=== PATIENT | female | born 1965 | race Caucasian/White ===

== ENCOUNTER 2021-08-10 12:40 | Outpatient (CLI) | payer BC, SELFPAY ==
--- NOTE | 2021-08-10 | ECHO_ITS ---
Patient Info Name: Roxy Cunningham Age: 55 years : 1965 Gender: Female Ht: 65 in Wt: 138 lbs BSA: 1.70 m2 HR: 60 bpm BP: 139 / 77 mmHg Technical Quality: Good Exam Date: 08/10/2021 1:21 PM Exam Location: [facility] Patient Status: Outpatient Admit Date: 08/10/2021 Staff Ordering Physician: IanDion MD Mailroom Supervisor: Alisa Harris RDCS Attending Provider: PabloDion MD Exam Type: CA echo doppler color flow Study Info Indications - chest pain Complete two-dimensional, color flow and Doppler transthoracic echocardiogram is performed. Summary 1. Complete two-dimensional, color flow and Doppler transthoracic echocardiogram is performed. 2. Left ventricular chamber dimension is normal. 3. Left ventricular systolic function is normal, estimated at 60-65%. 4. The left ventricular diastolic function is normal. 5. E/e' 9 is minimally elevated. 6. There is mild to moderate mitral valve regurgitation. 7. There is trace tricuspid valve regurgitation. 8. No pulmonary hypertension, estimated pulmonary arterial systolic pressure is 21 mmHg. Left Ventricle E/e' 9 is minimally elevated. Left ventricular chamber dimension is normal. Left ventricular systolic function is normal, estimated at 60-65%. The left ventricular diastolic function is normal. Right Ventricle Right ventricular chamber dimension is normal. Right ventricular systolic function is normal. Left Atria Left atrial chamber dimension is normal. Right Atria Right atrial chamber dimension is normal. Aortic Valve The aortic valve is trileaflet. There is no aortic valve stenosis. There is no aortic valve regurgitation. Pulmonic Valve There is no pulmonic regurgitation. Mitral Valve There is no mitral valve stenosis. There is mild to moderate mitral valve regurgitation. Tricuspid Valve There is trace tricuspid valve regurgitation. No pulmonary hypertension, estimated pulmonary arterial systolic pressure is 21 mmHg. Pericardium/Pleural There is no pericardial effusion. Inferior Vena Cava Normal inferior vena cava with >50% collapse upon inspiration consistent with normal right atrial pressure, 5 mmHg. Aorta The aortic root size at the sinus of Valsalva is normal. Left Ventricular Outflow Tract Name Value Normal LVOT 2D LVOT Diameter 2.0 cm LVOT Doppler LVOT Peak Gradient 5 mmHg LVOT Mean Gradient 2 mmHg LVOT VTI 22 cm LVOT VTI/AV VTI Ratio 0.9 LVOT Stroke Volume 67 ml LVOT CO 13.7 l/min LVOT CI 8.0 l/min/m2 Pulmonic Valve Name Value Normal PV Doppler PV Peak Gradient 3 mmHg Mitral Valve
== END 2021-08-10 12:41 | disposition home or self-care (01) ==
PROVIDERS: PCP Internal Medicine; Visit Provider Internal Medicine
DX: R07.9 Chest pain, unspecified (principal); I34.0 Nonrheumatic mitral (valve) insufficiency
CPT/HCPCS: 93306

== ENCOUNTER 2022-10-25 01:15 | Day surgery (SDC) | payer BC, SELFPAY ==
[2022-10-16 15:07] VITALS: BMI 23.3
[2022-10-25 09:32] VITALS: BP 100/84; PULSE 61; RESP 18; TEMP 36.1; O2SAT 100
[2022-10-25] MEDS: LACTATED RINGERS 1,000 ML 150 ML IV CONT (09:49)
--- NOTE | 2022-10-25 10:26 | P.HP_ITS ---
History of Present Illness History of Present Illness Consent: Risks, benefits, and alternatives have been discussed and questions answered. Patient agrees to proceed with procedure. Chief complaint: family hx colon ca Narrative: Roxy Cunningham is a 57 year old female Presents for screening colonoscopy. Patient's current weight appetite and bowel movements are normal. Family history is significant her grandmother and grandfather both have had colon cancer. Patient has had previous colonoscopies 2017 in 2009 that were unremarkable. Patient presents today for neoplasia screening colonoscopy. Patient reports no first-degree relatives with polyps or cancer. Review of Systems Review of Systems: Review of systems noncontributory. [facility] Social History Social History Smoking status: Never smoker Alcohol intake: current Alcohol use details: twice a month Substance use: never Substance use type: does not use Living arrangements: with family Spiritual care concerns: No Meds Home Medications and Allergies Home Medications Medication Instructions Recorded Confirmed Type ezetimibe 10 mg tablet 10 mg PO DAILY 10/16/22 10/16/22 History rosuvastatin 20 mg tablet 20 mg PO DAILY 10/16/22 10/16/22 History Allergies Allergy/AdvReac Type Severity Reaction Status Date / Time No Known Allergies Allergy Verified 10/25/22 09:31 Vital Signs Vital Signs - 24 hr 10/25/22 09:32 Temperature 97 F L Pulse Rate 61 Respiratory Rate 18 Blood Pressure 100/84 Pulse Oximetry 100 Oxygen Delivery Room Air Exam Narrative: Physical exam reveals patient to be alert. vital signs stable. HEENT exam is unremarkable. Patient is anicteric. Lungs are clear to auscultation and percussion. Heart is without murmur or extra sounds. Abdomen bowel sounds are present soft nontender with no organomegaly. Digital external rectal exam is normal. Assessment and Plan Assessment and plan (1) Encounter for screening colonoscopy: Code(s): Z12.11 - Encounter for screening for malignant neoplasm of colon Status: Acute Assessment and Plan: Patient presents for screening colonoscopy. Family history is significant for 2 grandparents who have had colon cancer. Further recommendations may be given after endoscopy.
--- NOTE | 2022-10-25 10:41 | P.PNAN_ITS ---
Anes - Initial Pre Proc Eval Procedure: Operation Date: 10/25/22 10:30 Proposed Procedures p Colonoscopy - Joao Jha MD Date/Time: 10/25/22 10:41 Surgeon: Joao Jha MD Pre Op Diagnosis: family hx colon ca Patient Data Age: 57 Gender: F Height: 1.65 m Weight: 61.6 kg Last Vital Signs Temp 97 F L 10/25/22 09:32 Pulse 61 10/25/22 09:32 Resp 18 10/25/22 09:32 BP 100/84 10/25/22 09:32 Pulse Ox 100 10/25/22 09:32 O2 Del Method Room Air 10/25/22 09:32 Allergies Allergy/AdvReac Type Severity Reaction Status Date / Time No Known Allergies Allergy Verified 10/25/22 09:31 Home Medications Medication Instructions Recorded Confirmed Type ezetimibe 10 mg tablet 10 mg PO DAILY 10/16/22 10/16/22 History rosuvastatin 20 mg tablet 20 mg PO DAILY 10/16/22 10/16/22 History Patient hx anesthesia problems: none Family hx anesthesia problems: none Results Review: All pre-operative results and documents have been reviewed as part of the pre- operative evaluation. [facility] Social History Social History Smoking status: Never smoker Alcohol intake: current Alcohol use details: twice a month Substance use: never Substance use type: does not use Living arrangements: with family Spiritual care concerns: No Anes - Eval Final PreProcedure Day of Procedure 10/25/22 10:41 Patient weight: normal Heart: regular rate and rhythm Lungs: clear to auscultation Airway: Mallampati scale class II Neurological: alert and oriented Last oral intake: >/= 8 hours ASA classification: II Emergent: no Anesthetic plan: proceed Anesthesia type and monitoring: general GIVS and standard monitoring Results Review: All pre-operative results and documents have been reviewed as part of the pre- operative evaluation. Informed Consent: The patient's anesthetic plan and its attendant risks and benefits were discussed with the patient/family/POA. Questions were solicited and answers provided to the satisfaction of the patient/family/POA.
[2022-10-25 11:24] VITALS: BP 96/54; PULSE 70; RESP 18; O2SAT 100
[2022-10-25 11:34] VITALS: BP 110/57; PULSE 60; RESP 22; O2SAT 98
[2022-10-25 11:44] VITALS: BP 122/74; PULSE 54; RESP 21; O2SAT 100
== END 2022-10-25 11:52 | disposition home or self-care (01) ==
PROVIDERS: PCP Internal Medicine; Visit Provider Internal Medicine Gastroenterology
PROC: 0DJD8ZZ Inspection of Lower Intestinal Tract, Via Natural or Artificial Opening Endoscopic (ICD-10-PCS; CPT 45378; principal; 2022-10-25 10:30)
DX: Z12.11 Encounter for screening for malignant neoplasm of colon (principal); K64.8 Other hemorrhoids; K57.30 Diverticulosis of large intestine without perforation or abscess without bleeding; Z80.0 Family history of malignant neoplasm of digestive organs
CPT/HCPCS: 45378; J2704; J7120